=== PATIENT | female | born 1950 | race Caucasian/White ===

== ENCOUNTER → 2023-08-23 | Outpatient (CLI) | payer MEDICARE, OTHER ==
[~2023-08-23] MED LIST: CALCA500CH PO; DILT60 PO; DILTIAZEM 24HR120 M2 PO; EUTHYROX50 MCG PO; FIBER TABS PO; FISH1000 PO; FLUO20 PO; HYDACE5 PO; IBUP800 PO; MULTIVITAMIN PO; PROAIR RESPICL90 MCG IH; TRAZ100 PO; ZOLP10 PO; [UNRECOGNIZED DRUG - MIXTURE] PO
== END | disposition home or self-care (01) ==
LOC: LAB SHORT 14:38 → LAB 14:38
DX: R31.9 Hematuria, unspecified (principal)
CPT/HCPCS: 87077; 87086; 87186

== ENCOUNTER → 2023-08-23 | Outpatient (CLI) | payer MEDICARE, OTHER ==
[2023-08-23 15:41] LABS: BASOPHILS ABSOLUTE AUTO 0.05 K/mm3 (0.00-0.23); BASOPHILS PERCENT AUTO 1 % (0-2); EOSINOPHILS ABSOLUTE AUTO 0.08 K/mm3 (0.00-0.68); EOSINOPHILS PERCENT AUTO 2 % (0-6); Hematocrit 37.5 % (33.0-51.0); Hemoglobin 11.9 g/dL (11.5-16.0); IMMATURE GRAN ABSOLUTE AUTO 0.02 K/mm3 (0.00-0.10); IMMATURE GRAN PERCENT AUTO 0 % (0-1); LYMPHOCYTES ABSOLUTE AUTO 1.06 K/mm3 (0.84-5.20); LYMPHOCYTES PERCENT AUTO 22 % (21-46); MONOCYTES ABSOLUTE AUTO 0.29 K/mm3 (0.16-1.47); MONOCYTES PERCENT AUTO 6 % (4-13); Mean Corpuscular HGB 27.4 pg (26.0-34.0); Mean Corpuscular HGB Conc 31.7 g/dL (31.5-36.5); Mean Corpuscular Volume 86 fL (80-100); Mean Platelet Volume 9.7 fL (9.1-12.4); NEUTROPHILS ABSOLUTE AUTO 3.27 K/mm3 (1.96-9.15); NEUTROPHILS PERCENT AUTO 69 % (41-73); Platelet Count 238 K/mm3 (150-400); RDW Coefficient Variation 14.1 % (11.7-14.2); RDW Standard Deviation 44.5 fL (35.1-46.3); Red Blood Cell Count 4.34 M/mm3 (3.80-5.20); White Blood Cell Count 4.77 K/mm3 (4.00-11.30)
[2023-08-23 15:51] LABS: Albumin, Blood 3.5 g/dL (3.4-5.0); Bilirubin, Total 0.2 mg/dL (0.1-1.0); Bun/Creatinine Ratio 23.5 (12.0-20.0); Calcium, Blood 9.4 mg/dL (8.5-10.1); Creatinine, Blood 0.68 mg/dL (0.40-1.00); Globulin, Blood 3.6 g/dL (2.2-4.0); Potassium, Blood 3.9 mmol/L (3.5-5.5); Total Protein, Blood 7.1 g/dL (6.4-8.2)
== END | disposition home or self-care (01) ==
LOC: LAB 15:36 → LAB SHORT 15:36
PROVIDERS: Emergency Medicine
DX: R31.9 Hematuria, unspecified (principal)
CPT/HCPCS: 80053; 85025

== ENCOUNTER 2023-08-26 06:09 | Day surgery (SDC) | payer MEDICARE, OTHER ==
[~2023-08-26] VITALS: Ht 165.1 cm; Wt 94.0 kg
[~2023-08-26 06:09] MED LIST changes: -DILTIAZEM 24HR120 M2 PO; -EUTHYROX50 MCG PO; +Lactated Ringer's 1,000 ML IV ONE; -PROAIR RESPICL90 MCG IH; -TRAZ100 PO
[2023-08-26] MEDS ORDERED: TRAZ100 PO (06:51)
[2023-08-26] MEDS ORDERED: EUTHYROX50 MCG PO (06:52)
[2023-08-26] MEDS ORDERED: DILTIAZEM 24HR120 M2 PO (06:53)
[2023-08-26] MEDS ORDERED: PROAIR RESPICL90 MCG IH (06:55)
[2023-08-26] MEDS ORDERED: Ropivacaine 0.5% HCl/Pf 5 MG/ML 20ML VIAL ONE (07:01)
[2023-08-26] MEDS ORDERED: Lactated Ringer's 1,000 ML IV ONE (07:25)
[2023-08-26] MEDS ORDERED: NS 50 ML IV ONE (07:28)
[2023-08-26] MEDS ORDERED: CeFAZolin Sodium 2,000 MG VIAL ONE (07:28)
[2023-08-26] MEDS ORDERED: Ondansetron HCl 2 MG / ML 2ML Vial ONE ×2 (07:38→09:23)
[2023-08-26] MEDS ORDERED: Dexamethasone Sod Phos 10 MG/ML 1ML VIAL ONE (07:38)
[2023-08-26] MEDS ORDERED: HYDROmorphone HCl/Pf 1MG SYR ONE (07:38)
[2023-08-26] MEDS ORDERED: propofoL 20 ML IV ONE (07:38)
--- NOTE | 2023-08-26 08:23 | NUR ---
08/26/23 0823 Denisse Montes 40ML OF ROPIVACAINE 0.5% MIXED AND VERIFIED WITH 0.2ML OF EPI (1MG/ML) TO MAKE ROPIVACAINE 0.5% WITH EPI 1:200,000 FOR INJECTION AT THE OPSITE BY DR HOLT.
[2023-08-26] MEDS ORDERED: EPINEPhrine HCl 1 MG/ML 1ML Amp XX ONE (08:30)
--- NOTE | 2023-08-26 09:04 | NUR ---
08/26/23 0904 Angela Ray PT. DENIES PAIN OR NAUSEA.
--- NOTE | 2023-08-26 09:30 | NUR ---
08/26/23 3530 Angela Ray PT. VERBALIZES HAVING "A LITTLE BIT OF NAUSEA", ZOFRAN GIVEN PER DR. RODRIGUEZ.
[2023-08-26 09:33] VITALS: BP 151/75
== END 2023-08-26 10:20 | disposition home or self-care (01) ==
LOC: ORSCSDS 06:09
PROVIDERS: Podiatrist Foot & Ankle Surgery
PROC: 0SGN04Z Fusion of Left Metatarsal-Phalangeal Joint with Internal Fixation Device, Open Approach (ICD-10-PCS; principal; 2023-08-26 07:30)
DX: M20.12 Hallux valgus (acquired), left foot (principal); M20.22 Hallux rigidus, left foot; I10 Essential (primary) hypertension; J45.909 Unspecified asthma, uncomplicated; E03.9 Hypothyroidism, unspecified; Z79.899 Other long term (current) drug therapy; Z68.34 Body mass index [BMI] 34.0-34.9, adult
CPT/HCPCS: C1713; J0171; J0690; J1100; J1170; J2405; J2704; J2795; J7120